=== PATIENT | female | born 1990 | race Two or more races ===

== ENCOUNTER 2018-05-22 21:09 | Emergency (ER) | payer OTHER ==
[~2018-05-22] VITALS: Ht 157.5 cm; Wt 73.0 kg
[~2018-05-22 21:09] MED LIST: IBUPROFEN600 MG ORAL; KEFLEX500 MG ORAL; NKM
[2018-05-22 21:26] VITALS: BP 109/70
[2018-05-22] MEDS ORDERED: CEPHALEXIN500 MG ORAL (21:33)
[2018-05-22] MEDS ORDERED: KENALOG 0.1% CR15 GM APPLIC (21:35)
--- NOTE | 2018-05-22 22:03 | Emergency Room Report ---
History of Present Illness General Chief Complaint: Skin Rash/Abscess Source: Patient Present Illness HPI Patient is a 28-year-old female presented after increased skin rash. Patient reports having increased itchiness to multiple areas of her skin. She reports having recent contact with significant other was similar type rash. She denies any fever. She reports having moderate itching. She denies any sore throat or general lesions. She denies any difficulty breathing. Allergies: Coded Allergies: No Known Allergies (Unverified , 06/27/16) Patient History Past Medical History: see triage record Last Menstrual Period: last month Reviewed Nursing Documentation: PMH: Agreed; PSxH: Agreed Review of Systems All Other Systems: negative except mentioned in HPI Physical Exam Vital Signs Date Time Temp Pulse Resp B/P (MAP) Pulse Ox O2 Delivery O2 Flow Rate FiO2 05/22/18 21:14 98.6 104 16 109/70 98 Room Air 98.6 General Appearance: well appearing, no apparent distress, alert, GCS 15 Head: normocephalic, atraumatic ENT: hearing grossly normal, normal voice Neck: full range of motion, supple Respiratory: no respiratory distress, speaking full sentences Musculoskeletal: normal inspection, back normal, digits/nails normal, no calf tenderness Neurologic: normal inspection, alert, oriented x3, responsive, normal gait Psychiatric: mood/affect normal Skin: other - multiple raised patches without ulceration Medical Decision Making Diagnostic Impression: Primary Impression: Skin rash ER Course Patient presented for skin rash. Differential diagnosis included was not limited to eczema, contact dermatitis, sunburn, lupus,pellagra. Patient has a benign exam and does not appear to require any further imaging or laboratory testing at this time. The patient appears to have some skin rash which may be some early staph infection. Patient will be treated with oral antibiotics. Patient was also given hydrocortisone cream for itching. The patient was advised to have the area rechecked in the next one to 2 days for further evaluation to make sure rash is improving. Last Vital Signs Date Time Temp Pulse Resp B/P (MAP) Pulse Ox O2 Delivery O2 Flow Rate FiO2 05/22/18 21:26 98.6 16 109/70 98 Room Air 98.6 05/22/18 21:14 104 Status: improved Disposition: HOME, SELF-CARE Condition: Stable Scripts Triamcinolone Acet (Triamcinolone Acetonide) 80 Gm Cream..g. 15 GM APPLIC DAILY, #80 GM Prov: Jayme Emmanuel MD 05/22/18 Cephalexin* (KEFLEX*) 500 Mg Capsule 500 MG ORAL EVERY 6 HOURS, #28 CAP Prov: Jayme Emmanuel MD 05/22/18 Patient Instructions: Jayme Arzate MD May 22, 2018 22:03
[2018-05-22 22:12] VITALS: BP 109/70
== END 2018-05-22 22:15 | disposition home or self-care (01) ==
LOC: EMR 21:30
DX: R21 Rash and other nonspecific skin eruption (principal)
CPT/HCPCS: 81025; 99283